=== PATIENT | female | born 1980 | race Caucasian/White ===

== ENCOUNTER 2022-09-07 08:08 | Emergency (ER) | payer BC, SELFPAY ==
[2022-09-07] VITALS (7 sets, daily range): BP systolic 114–136; BP diastolic 76–97; PULSE 94–120; RESP 20; TEMP 36.6; O2SAT 95–98
--- NOTE | ~2022-09-07 | CT_ITS ---
CT Abdomen and Pelvis with contrast. History: Abdominal pain. Spiral CT of the abdomen and pelvis was performed after the administration of intravenous contrast. 1 00 cc of Omnipaque 350 was administered intravenously without complication. Dose reduction technique was used on this scan by utilizing automated exposure control and iterative reconstruction technique. The dose-length product (DLP) was 961.97 mGy-cm. Findings: Scans through the lung bases demonstrate mild atelectatic change. The liver, pancreas, gallbladder, adrenals and kidneys are within normal limits. There is a probable anterior splenic mass measuring approximately 4.5 cm in diameter, with claw sign of the splenic paren chyma, and multifocal nodular areas of enhancement. No evidence of aortic aneurysm. No lymphadenopat hy is seen. There is no evidence of bowel obstruction. Small to small moderate abdominopelvic ascites present, wi th mildly increased Hounsfield units, suggestive of hemorrhagic ascites. Images through the pelvis were performed. Urinary bladder unremarkable. IUD in place. 4.4 cm left adn exal cyst present. Bilateral L5 pars interarticularis defects are present, with 11 mm anterolisthesis of L5 over S1.. 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 Small to [id number] amount of hemorrhagic abdominal pelvic ascites. Source of bleeding could b e the aforementioned splenic presumed hemangioma. 4.4 cm left adnexal cyst. Bilateral L5 pars interarticularis defects, with 11 mm anterolisthesis of L5 over S1. Case discussed with Dr. Ricardo at the time of this reading. Reviewed, dictated and finalized at location . 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 Small to [id number] amount of hemorrhagic abdominal pelvic ascites. Sour ce of bleeding could be the aforementioned splenic presumed hemangioma. 4.4 cm left adnexal cyst. Bilateral L5 pars interarticularis defects, with 11 mm anterolisthesis of L5 ov er S1. Case discussed with Dr. Ricardo at the time of this reading.
--- NOTE | 2022-09-07 08:18 | ED.ABDPAIN ---
HPI - Abdominal Pain General Chief Complaint: Abdominal Pain Stated Complaint: abdominal pain Time Seen by Provider: 09/07/22 08:10 Source: patient Mode of arrival: ambulatory Limitations: no limitations History of Present Illness HPI narrative: 42-year-old female with a past history of 12 years ago presents to the ER with -- generalized abdominal pain which started at 10:00 p.m. yesterday. -- Nausea with 1 episode of vomiting -- vomitus was bloody. No hematochezia. No melena. No fever MD elicited complaint: abdominal pain Pertinent past history: none Onset (ago): hour(s) ( started 10 hours ago) Pain Consistency: constant Location: diffuse Severity: severe Quality: aching Migration to: no migration Exacerbating factors: nothing Relieving factors: nothing Associated symptoms: denies other symptoms, nausea and vomiting Related Data Hx Last Menstrual Period: patient has an IUD and has not had a period in the past 2 years Home Medications Medication Instructions Recorded Confirmed No Home Medications 09/07/22 09/07/22 Allergies Allergy/AdvReac Type Severity Reaction Status Date / Time No Known Allergies Allergy Verified 09/07/22 08:47 Review of Systems Review of Systems: All systems reviewed & are unremarkable except as noted in HPI and below Constitutional: Constitutional: Reports as per HPI and Reports no additional constitutional complaints Eyes: Eyes: Reports as per HPI and Reports no additional eye complaints ENT: Reports system reviewed and no additional complaints, except as documented and Reports as per HPI Cardiovascular: Cardiovascular: Reports as per HPI and Reports no additional cardiovascular complaints Respiratory: Respiratory: Reports as per HPI and Reports no additional respiratory complaints Gastrointestinal: Gastrointestinal: Reports as per HPI, Reports no additional gastrointestinal complaints, Reports abdominal pain, Reports nausea and Reports vomiting Genitourinary: Genitourinary: Reports no additional female genitourinary complaints and Reports as per HPI Musculoskeletal: Musculoskeletal: Reports no additional musculoskeletal complaints and Reports as per HPI Integumentary/Breasts: Skin/Breast: Reports system reviewed and no additional complaints, except as docu and Reports as per HPI Neurologic: Reports system reviewed and no additional complaints, except as documented and Reports as per HPI Psychiatric: Psychiatric: Reports no additional psychiatric complaints and Reports as per HPI Endocrine: Endocrine: Reports no additional endocrine complaints and Reports as per HPI Hematologic/Lymphatic: Hematologic/Lymphatic: Reports no additional hematologic/lymphatic complaints and Reports as per HPI Allergic/Immunologic: Allergic/Immunologic: Reports no additional allergic/immunologic complaints and Reports as per HPI Exam Const: General: ill appearing Orientation/consciousness: patient oriented x3 Limitations: no limitations HENMT: Head: normal to inspection Ears: external ears normal Face/Nose/Sinus: Normal external nose present Face and sinus: normal facial exam Mouth: Yes Normal oral and palatal mucosa present Throat: posterior oropharynx normal Eyes: Conjunctivae: conjunctivae normal Pupils: Equal, round and reactive pupils present EOM: EOMs intact bilaterally Direct Ophthalmoscopy: no photophobia Neck: Neck: normal visual inspection, no lymphadenopathy and no meningeal signs Chest: Chest palpation & inspection: normal inspection of the chest Resp: Auscultation: clear to auscultation bilaterally Cardio: Rate: regular rate Rhythm: regular rhythm GI: GI Palp: Yes Soft to palpation Auscultation: normal bowel sounds Other: diffuse tenderness with guarding. : General: Yes no CVA tenderness Back/Spine/Pelvis: Back: no CVA tenderness Skin: General skin exam: normal color Rashes: no rashes Neuro: General: patient oriented x3, moves all extremiti
[2022-09-07 08:43] LABS: Basophils Absolute Auto 0.03 K/mm3 (0.00-0.10); Basophils Percent Auto 0.2 % (0.0-1.0); Hematocrit 33.6 % (35.0-49.0); Hemoglobin 11.3 g/dL (12.0-15.0); Immature Granulocyte Absolute 0.09 K/mm3 (0.00-0.00); Immature Granulocyte Percent A 0.6 % (0.0-0.0); Lymphocytes Absolute Auto 1.32 K/mm3 (1.10-4.50); Lymphocytes Percent Auto 8.3 % (18.0-42.0); Mean Corpuscular HGB Conc 33.6 g/dL (32.0-36.0); Mean Corpuscular Hemoglobin 30.1 pg (27.0-31.0); Mean Corpuscular Volume 89.4 fL (78.0-102.0); Mean Platelet Volume 9.3 fl (9.2-11.8); Monocytes Percent Auto 3.8 % (2.0-11.0); Neutrophils Absolute Auto 13.9 K/mm3 (1.7-7.2); Neutrophils Percent Auto 87.1 % (50.0-70.0); Platelet Count Result 341 K/mm3 (150-420); Red Blood Count 3.76 M/mm3 (4.20-5.40); Red Cell Distribution Width 12.6 % (11.6-14.4); White Blood Count 15.9 K/mm3 (4.8-10.8)
[2022-09-07] MEDS: LACTATED RINGERS 500 ML 999 ML IV CONT (08:53)
[2022-09-07] MEDS: ONDANSETRON INJ 4 MG/2 ML VIAL IV PUSH (08:54)
[2022-09-07] MEDS: HYDROmorphone HCL INJ (*CRX) 2 MG/ML VIAL 0.5 MG IV PUSH ×2 (08:55→13:43)
[2022-09-07 09:02] LABS: Alanine Aminotransferase 22 U/L (14-59); Albumin Level 3.5 g/dL (3.4-5.0); Alkaline Phosphatase 104 U/L (46-116); Anion Gap 10 mmol/L (8-16); Aspartate Amino Transferase 13 U/L (15-37); Bilirubin,Total 0.3 mg/dL (0.00-1.00); Blood Urea Nitrogen 14 mg/dL (7-18); Calcium 8.2 mg/dL (8.5-10.1); Carbon Dioxide 24 mmol/L (21-32); Chloride 103 mmol/L (98-108); Estimated CRCL calculation 74 ml/min; Estimated Glomerular Filt Rate > 60; Glucose 173 mg/dL (70-99); Lipase 18 U/L (16-77); Osmolality Calculated 288 mOsm/kg (285-295); Partial Thromboplastin Time 26.8 SEC (23.90-30.70); Potassium 4.1 mmol/L (3.5-5.1); Prothrombin Time 10.7 Seconds (9.50-12.10); Sodium 137 mmol/L (136-145); Troponin I < 4.0 ng/L (0.00-60.4)
[2022-09-07 09:05] LABS: Lactic Acid Reflex 3.4 mmol/L (0.4-2.0)
[2022-09-07 09:47] LABS: Add Urine Microscopic? YES; Appearance Urine Clear (Clear); Bilirubin Urine Negative (Negative); Blood Urine Negative (Negative); Color Urine Yellow (Yellow); Glucose Urine UA Negative (Negative); Ketones Urine Negative (Negative); Leukocyte Esterase Ur Negative LEU/UL (Negative); Nitrate Urine Negative (Negative); Protein Urine Trace (Negative); Specific Grav Ur >= 1.030 (1.010-1.020); Urobilinogen Urine 0.2 mg/dL (0.2-1.0); pH Urine 5.5 (5.0-8.0)
[2022-09-07 09:51] LABS: RBC Urine None seen /hpf (0-2)
[2022-09-07 09:52] LABS: Bacteria Urine 1+ /hpf; Mucus Urine Moderate /lpf; Squamous Epithelial Cell Urine Moderate /hpf (Few); WBC Urine 0-3 /hpf (0-3)
[2022-09-07 10:04] LABS: Pregnancy On Board Control Positive; Urine Pregnancy Test Negative
[2022-09-07] MEDS: LACTATED RINGERS 1,000 ML 999 ML IV CONT (10:05)
[2022-09-07 11:41] LABS: Reflex Lactic Acid Yes or No Add Lactic
[2022-09-07] MEDS: LACTATED RINGERS 1,000 ML 75 ML IV CONT (12:15)
--- NOTE | 2022-09-07 12:40 | PC.NURSE ---
On 09/07/22, the student, [ZAINAB SANDOVAL ], provided care and completed [facility] documentation on this patient. I have reviewed the student's documentation and agree with the findings.
--- NOTE | 2022-09-07 14:58 | PC.NURSE ---
1340 pt left with iv fluids LR infusing at 75/hr
== END 2022-09-07 13:40 | disposition short-term general hospital (02) ==
PROVIDERS: Emergency Provider Internal Medicine Critical Care Medicine
DX: R16.1 Splenomegaly, not elsewhere classified (principal); R18.8 Other ascites
CPT/HCPCS: 36415; 74177; 80053; 81001; 81025; 83605; 83690; 84484; 85025; 85610; 85730; 96361; 96374; 96375; 96376; 99285; J1170; J2405; J7120; Q9967